=== PATIENT | male | born 1980 | race Caucasian/White ===

== ENCOUNTER 2019-04-01 21:48 | Emergency (ER) | payer BC, MEDICAID, OTHER ==
[~2019-04-01] VITALS: Ht 180.3 cm; Wt 118.2 kg
[~2019-04-01 21:48] MED LIST: GUAI120L55 PO; METH4TAB3 PO
[2019-04-01 21:58] VITALS: BP 135/91
[2019-04-01] MEDS ORDERED: diphenhydrAMINE 50 mg/ml inj IM ONE (22:20)
[2019-04-01] MEDS ORDERED: triamcinolone acetonide 40mg/ml inj IM ONE (22:35)
[2019-04-01] MEDS ORDERED: famotidine 20mg tablet PO ONE (22:35)
[2019-04-01] MEDS ORDERED: PRED50TA PO (22:46)
== END 2019-04-01 22:53 | disposition home or self-care (01) ==
LOC: ER 21:48
DX: R21 Rash and other nonspecific skin eruption (principal); T78.1XXA Other adverse food reactions, not elsewhere classified, initial encounter; R06.02 Shortness of breath; R10.10 Upper abdominal pain, unspecified; F10.99 Alcohol use, unspecified with unspecified alcohol-induced disorder; Z79.899 Other long term (current) drug therapy; X58.XXXA Exposure to other specified factors, initial encounter; Y93.89 Activity, other specified; Y92.89 Other specified places as the place of occurrence of the external cause; Y99.8 Other external cause status; Y90.9 Presence of alcohol in blood, level not specified
CPT/HCPCS: 93005; 96372; 99283; J1200; J3301